=== PATIENT | male | born 1960 | race Caucasian/White ===

== ENCOUNTER 2017-04-18 10:16 | Day surgery (SDCO) | payer MEDICARE, SELFPAY ==
[~2017-04-18] VITALS: Ht 175.3 cm; Wt 84.4 kg
[~2017-04-18 10:16] MED LIST: ASPIRIN EC325 MG PO; BUPIVACAINE IJ; CERTAGEN1 EACH PO; DIAZEPAM10 MG PO; DILAUDID 44 MG/1 ML IJ; DILAUDID PAIN PUMP; FERROUS SULFAT325 M2 PO; HABITROL21 MG TOP; LASIX40 MG PO; LAXATIVE PO; MOBIC15 MG PO; NITROSTAT0.4 MG SL; PERCOCET 5-3251 EACH PO; PRAVACHOL40 MG PO; TENORMIN50 MG PO; [UNRECOGNIZED DRUG - REMARK]
[2017-04-18 11:14] LABS: BASOPHIL 0.2 % (0-2); EOSINOPHIL 2.7 % (0-5); HCT 37.9 % (42.0-52.0); HGB 13.1 g/dl (13.2-18.0); LYMPHOCYTE 38.3 % (15-48); MCH 30.4 pg (25.0-31.0); MCHC 34.6 g/dL (32.0-36.0); MCV 87.9 fL (78.0-100.0); MONOCYTE 10.1 % (0-12); MPV 9.5 fL (6.0-9.5); NEUTROPHIL 48.7 % (41-80); PLT 289 K/uL (150-400); RBC 4.31 M/uL (4.70-6.00); RDW 12.6 % (11.5-14.0); WBC 9.5 K/uL (4.0-10.5)
[2017-04-18 11:28] LABS: ALBUMIN 3.7 g/dL (3.5-5.0); BILIRUBIN - TOTAL 0.2 mg/dL (0.1-1.0); CREATININE 0.7 mg/dL (0.7-1.2); GLOBULIN (CALCULATION) 2.9 g/dL (2.2-4.2); MAGNESIUM 2.06 mg/dL (1.40-2.10); POTASSIUM 4.2 mmol/L (3.5-5.1); TOTAL PROTEIN 6.6 g/dL (6.4-8.3); URIC ACID 4.6 mg/dL (3.4-7.0)
[2017-04-18 11:37] LABS: LACTIC ACID 1.1 mmol/L (0.5-2.2)
[2017-04-18 11:51] LABS: BILIRUBIN NEGATIVE (NEGATIVE); BLOOD TRACE-INTACT Ery/uL (NEGATIVE); CLARITY CLEAR (CLEAR); COLOR YELLOW (YELLOW); GLUCOSE (U) NORMAL (NORMAL); KETONE (U) NEGATIVE (NEGATIVE); LEUKOCYTES NEGATIVE Leu/uL (NEGATIVE); NITRITE NEGATIVE (NEGATIVE); PROTEIN NEGATIVE (NEGATIVE); UROBILINOGEN 0.2 mg/dL (0.2-1.0)
[2017-04-18 12:02] LABS: AMPHETAMINES NEGATIVE (NEGATIVE); BARBITURATES NEGATIVE (NEGATIVE); BENZODIAZEPINES POSITIVE (NEGATIVE); COCAINE NEGATIVE (NEGATIVE); MARIJUANA (THC) NEGATIVE (NEGATIVE); TRICYCLIC ANTIDEPRESSANT NEGATIVE (NEGATIVE)
[2017-04-18 12:03] LABS: METHADONE NEGATIVE (NEGATIVE)
[2017-04-18 12:05] LABS: URINARY RBC RARE
[2017-04-19 03:28] LABS: HCT 38.2 % (42.0-52.0); HGB 13.3 g/dl (13.2-18.0); MCH 30.5 pg (25.0-31.0); MCHC 34.8 g/dL (32.0-36.0); MCV 87.6 fL (78.0-100.0); MPV 9.3 fL (6.0-9.5); RBC 4.36 M/uL (4.70-6.00); RDW 12.4 % (11.5-14.0); WBC 10.2 K/uL (4.0-10.5)
[2017-04-19 03:48] LABS: CREATININE 0.7 mg/dL (0.7-1.2); POTASSIUM 4.6 mmol/L (3.5-5.1)
[2017-04-19] MEDS ORDERED: VICODIN 10/3251 EACH PO (09:58)
[2017-04-19] MEDS ORDERED: NEXIUM40 MG PO (15:27)
[2017-04-19] MEDS ORDERED: MUCINEX600 MG PO (15:31)
[2017-04-19] MEDS ORDERED: CLARITIN10 MG PO (15:33)
[2017-04-19] MEDS ORDERED: COMBIVENT RESPIM4 GM INH (15:35)
[2017-04-19] MEDS ORDERED: ASPIRIN EC81 MG PO (16:02)
== END 2017-04-19 11:48 | disposition home or self-care (01) ==
LOC: FER 10:16 → FMS 14:25
PROVIDERS: Internal Medicine; ADMIT Internal Medicine
DX: M13.0 Polyarthritis, unspecified (principal); M62.82 Rhabdomyolysis; J44.9 Chronic obstructive pulmonary disease, unspecified; G89.29 Other chronic pain; M65.9 Synovitis and tenosynovitis, unspecified; Z79.891 Long term (current) use of opiate analgesic; I25.2 Old myocardial infarction; Z95.5 Presence of coronary angioplasty implant and graft; I10 Essential (primary) hypertension; M25.78 Osteophyte, vertebrae; M47.815 Spondylosis without myelopathy or radiculopathy, thoracolumbar region; F17.200 Nicotine dependence, unspecified, uncomplicated; Z79.82 Long term (current) use of aspirin; K21.9 Gastro-esophageal reflux disease without esophagitis; Z98.52 Vasectomy status
CPT/HCPCS: 36415; 71010; 72125; 72128; 72131; 73030; 73502; 80048; 80053; 80305; 81001; 82550; 82962; 83605; 83735; 84550; 85025; 85651; 86140; 87040; G0378; J1170; J2405; J2930